=== PATIENT | female | born 1930 | race Caucasian/White ===

== ENCOUNTER 2017-01-27 14:29 | Outpatient (CLI) | payer MEDICARE ==
--- NOTE | 2017-01-29 09:11 | PET ---
PET BRAIN SCAN: CLINICAL HISTORY: Dementia, 87-year-old female. RADIOPHARMACEUTICAL: 10.61 mCi Fluorine 18-FDG IV. FINDINGS: There is appropriate distribution of radiotracer activity. Metabolic activity to the cerebral hemisp heres, bilaterally, is symmetric. There are no significant asymmetric radiotracer abnormalities to c onfirm areas of discernible glucose hypometabolism. The frontal lobes as well as the temporoparietal regions are symmetric-appearing. Brain volume is appropriate for patient's age. There is a small hypodensity of the left globus pall idus compatible with lacunar infarction. IMPRESSION: 1. No discernible asymmetric areas of decreased scintigraphic activity to confirm areas of glucose h ypometabolism. 2. 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 POS: ANABEL
== END 2017-01-27 14:30 | disposition home or self-care (01) ==
LOC: PET 14:29
PROVIDERS: ATTEND Psychiatry & Neurology Neurology
DX: G31.1 Senile degeneration of brain, not elsewhere classified (principal)
CPT/HCPCS: 78608; A9552